=== PATIENT | female | born 1980 | race Caucasian/White ===

== ENCOUNTER → 2021-04-13 17:19 | Outpatient (CLI) | payer BC, SELFPAY ==
--- NOTE | ~2021-04-13 | MR_ITS ---
EXAMINATION: MR ankle RT wo con DATE: 04/13/2021 18:25 INDICATION: Right posterior tibial tendinitis presenting with right ankle pain TECHNIQUE: Magnetic resonance imaging (MRI) of the right ankle was performed without intravenous cont rast. Sequences included sagittal, coronal, and axial proton-density weighted fast spin echo without and with fat saturation. COMPARISON: None. FINDINGS: Medial ankle ligaments: Deep and superficial deltoid ligaments as well as the spring ligament are normal. Lateral ankle ligaments: The anterior and posterior inferior tibiofibular ligaments are normal. The anterior talofibular, calc aneofibular and posterior talofibular ligaments are normal. Tendons: Achilles tendon is normal. Small amount of fluid consistent with minimal tenosynovitis in the tendon sheath surrounding the normal peroneus longus and brevis tendons. The tibialis anterior and extensor hallucis longus and extensor digitorum longus tendons are normal. The flexor digitorum longus and fle xor hallucis longus tendons are normal. Linear increased signal seen in the tibialis tendon beginning at the level of the distal aspect of the medial malleolus on both the axial and coronal images consi stent with longitudinal split tear. Small amount of fluid surrounding the tendon consistent with mild tenosynovitis. Plantar fascia: Plantar aponeurosis is normal. Bones/other: Bone alignment is normal. Normal marrow signal. No fracture, reactive edema or pathologic marrow repl acing process. Joint spaces are normal with physiologic amount of fluid in the joint spaces. IMPRESSION: 1. Mild tibialis posterior tenosynovitis with longitudinal split tear in the distal tendon. 2. Minimal peroneal tenosynovitis with normal-appearing tendons. Reviewed, dictated and finalized at location A. IMPRESSION: 1. Mild tibialis posterior tenosynovitis with longitudinal split tear in the di stal tendon. 2. Minimal peroneal tenosynovitis with normal-appearing tendons.
== END ==
PROVIDERS: Visit Provider Podiatrist Foot & Ankle Surgery
DX: M76.821 Posterior tibial tendinitis, right leg (principal)
CPT/HCPCS: 73721

== ENCOUNTER → 2023-02-13 16:06 | Outpatient (CLI) | payer BC, SELFPAY ==
--- NOTE | ~2023-02-13 | MM_ITS ---
EXAMINATION: MM screening darby BI w jessica HISTORY: Screening mammogram TECHNIQUE: Craniocaudal and mediolateral oblique 3-D tomosynthesis images were obtained and synthetic 2-D images were generated. CAD analysis was submitted and interpreted. COMPARISON: No prior mammogram is available for comparison at this institution. BREAST PARENCHYMAL COMPOSITION:The breasts are extremely dense, which lowers the sensitivity of mammo graphy. FINDINGS: No suspicious mass, calcification, or architectural distortion are identified in either marcelle ast to suggest malignancy. IMPRESSION: No mammographic evidence of malignancy. Recommend routine screening mammography in one year. BI-RADS Category 1: Negative Reviewed, dictated and finalized at location .
== END ==
PROVIDERS: PCP Clinical Nurse Specialist; Visit Provider Clinical Nurse Specialist
DX: Z12.31 Encounter for screening mammogram for malignant neoplasm of breast (principal)
CPT/HCPCS: 77063; 77067

== ENCOUNTER 2023-04-14 19:10 | Emergency (ER) | payer BC, SELFPAY ==
--- NOTE | ~2023-04-14 | US_ITS ---
EXAMINATION: US pelvic complete DATE: 04/15/2023 00:05 INDICATION: Right ovarian cyst Comparison:CT dated 04/14/2023 TECHNIQUE: Multiple transabdominal and endovaginal sonographic images of the pelvis performed. FINDINGS: The uterus is surgically absent. The right ovary measures 5.9 x 3.7 x 3.3 cm. There is normal vascular flow in the right ovary. There is a complex ovarian mass measuring 3.4 x 3.6 x 3.1 cm with peripheral vascularity. The left ovary is surgically absent. There is no free fluid in the pelvis. There are no abnormal masses seen on either side. IMPRESSION: 1. Complex right ovarian mass measuring 3.6 cm. Normal vascular flow in the right ovary. Differential diagnosis includes endometrioma, dermoid as well as ovarian cystadenocarcinoma. Recommend surgical c onsultation. Reviewed, dictated and finalized at location [] IMPRESSION: 1. Complex right ovarian mass measuring 3.6 cm. Normal vascular flow in the rig ht ovary. Differential diagnosis includes endometrioma, dermoid as well as ovar dang cystadenocarcinoma. Recommend surgical consultation.
--- NOTE | ~2023-04-14 | CT_ITS ---
EXAMINATION: CT abdomen pelvis w con INDICATION: Lower abdominal pain TECHNIQUE: Computed tomographic images of the abdomen and pelvis were obtained after the administrati on of 100 cc of Omnipaque 350 intravenous contrast. The dose-length product (DLP) was 666.69 mGy-cm. Automated exposure control and iterative reconstruction technique were employed. COMPARISON: None available FINDINGS: Minimal dependent atelectasis is present in the lung bases. The heart size is normal. The l iver, spleen, pancreas, gallbladder, and adrenal glands are normal. The kidneys are unremarkable. No pathologically enlarged abdominal or pelvic lymph nodes are identified. No free intraperitoneal gas o r evidence of bowel obstruction. The appendix is normal. A large volume of colonic stool is present. No pathologically enlarged abdominal or pelvic lymph nodes are identified. There is a 3.2 cm enhancin g cystic area of the right adnexa. There is mild inflammatory change of the right adnexa. IMPRESSION: 1. Cystic lesion of the right adnexa with right adnexal inflammatory change. Further evaluation with pelvic ultrasound is recommended. Reviewed, dictated and finalized at location A. IMPRESSION: 1. Cystic lesion of the right adnexa with right adnexal inflammatory change. Fu rther evaluation with pelvic ultrasound is recommended.
[2023-04-14 19:22] VITALS: BP 111/68; PULSE 93; RESP 18; TEMP 37; O2SAT 99
[2023-04-14 20:02] LABS: Appearance Urine Clear (Clear); Basophils Absolute Auto 0.1 K/mm3 (0.0-0.1); Basophils Percent Auto 0.5 % (0.2-1.2); Bilirubin Urine Negative (Negative); Blood Urine Negative (Negative); Color Urine Yellow (Yellow); Eosinophils Absolute Auto 0.4 K/mm3 (0-0.3); Eosinophils Percent Auto 3.1 % (0-4.4); Glucose Urine UA Negative (Negative); Hematocrit 41.3 % (37.0-47.0); Hemoglobin 13.3 g/dL (12.0-15.0); Immature Granulocyte Absolute 0.03 K/mm3 (0.00-0.031); Immature Granulocyte Percent A 0.2 % (0-0.5); Ketones Urine Negative (Negative); Leukocyte Esterase Ur Negative LEU/UL (Negative); Lymphocytes Percent Auto 18.1 % (18.3-44.2); Mean Corpuscular HGB Conc 32.2 g/dl (32-36); Mean Corpuscular Hemoglobin 29.6 pg (26-34); Mean Platelet Volume 9.4 fl (7.4-10.4); Monocytes Absolute Auto 1.1 K/mm3 (0.1-0.6); Monocytes Percent Auto 8.9 % (2.6-8.5); Neutrophils Absolute Auto 8.4 K/mm3 (1.3-6.7); Neutrophils Percent Auto 69.2 % (45.5-73.1); Nitrate Urine Negative (Negative); Platelet Count Result 234 k/mm3 (150-375); Protein Urine Negative (Negative); Red Blood Count 4.49 M/mm3 (4.2-5.4); Red Cell Distribution Width 13.1 % (11.5-14.5); Specific Grav Ur 1.024 (1.001-1.035); White Blood Count 12.2 K/mm3 (4.5-10.0)
[2023-04-14 20:04] LABS: Add Urine Microscopic? NO
[2023-04-14 20:11] LABS: Alanine Aminotransferase 52 U/L (6-35); Albumin Level 4.3 g/dL (3.5-5.1); Alkaline Phosphatase 78 U/L (38-126); Anion Gap 5 mmol/L (8-16); Aspartate Amino Transferase 52 U/L (14-36); Bilirubin,Total 0.4 mg/dL (0.2-1.3); Blood Urea Nitrogen 23 mg/dL (7-17); Calcium 8.4 mg/dL (8.4-10.2); Carbon Dioxide 29 mmol/L (22-30); Chloride 103 mmol/L (98-107); Estimated CRCL calculation 76 ml/min; Estimated Glomerular Filt Rate > 60; Glucose 88 mg/dL (65-110); Lipase 82 U/L (23-300); Potassium 4.2 mmol/L (3.4-5.0); Sodium 137 mmol/L (137-145)
[2023-04-14] MEDS: SODIUM CHLORIDE 0.9% IV 1,000 ML 999 ML IV CONT (21:24)
[2023-04-14] MEDS: ACETAMINOPHEN 500 MG TABLET 1000 MG PO (21:26)
--- NOTE | 2023-04-14 21:32 | PC.NURSE ---
Pt states she has a hx of hysterectomy. water quality manager sent down urine sample. No test was obtained.
--- NOTE | 2023-04-14 21:50 | ED.ABDPAIN ---
HPI - Abdominal Pain General Chief Complaint: Abdominal Pain Stated Complaint: lower abd pain Time Seen by Provider: 04/14/23 20:23 Source: patient Mode of arrival: ambulatory Limitations: no limitations History of Present Illness HPI narrative: Patient is 42-year-old female who presents to the ED with report of lower abdominal pain. Patient reports the pain has been present since . She describes a constant aching pain with intermittent sharp pains. Initially began more on the left side, but now includes the right lower side as well. She reports having worsening pain in her abdomen with urinating and having a bowel movement, also worse with movement at times. She states the pain feels somewhat similar to previous endometriosis pain. She thought she may be constipated and took MiraLAX, last had a bowel movement today prior to arrival. She has not tried anything further for the pain. She otherwise denies any nausea, vomiting, diarrhea, rectal bleeding, melena, fevers, dysuria, hematuria. Related Data Home Medications Medication Instructions Recorded Confirmed fexofenadine 180 mg tablet 180 mg PO DAILY 02/01/22 02/11/23 (Allergy Relief (fexofenadine)) fluoxetine 40 mg capsule 40 mg PO DAILY 02/01/22 02/11/23 lithium carbonate 150 mg capsule 150 mg PO QID 02/11/23 02/11/23 Allergies Allergy/AdvReac Type Severity Reaction Status Date / Time coconut Allergy Unknown Unknown Verified 06/28/22 13:32 Review of Systems Review of Systems: CONSTITUTIONAL: Denies fever, chills, or sweats. CARDIOVASCULAR: Denies chest pain. RESPIRATORY: Denies dyspnea. GASTROINTESTINAL: See HPI. GENITOURINARY: See HPI. SKIN: Denies rash or itching. MUSCULOSKELETAL: Denies back pain, joint pain, or myalgia. All systems reviewed & are unremarkable except as noted in HPI and below PMFSH Past Medical History Medical History (Updated 04/15/23 @ 01:39 by Maria Isabel Kapoor PA-C) Allergies Migraine Surgical History Surgical History (Updated 04/15/23 @ 01:04 by Maria Isabel Kapoor PA-C) H/O shoulder surgery right, 09/2020 H/O: hysterectomy (~04/2022) with left oophorectomy Family History Family History Mother Hypertension Hyperlipidemia Depression Heart disease Thyroid disorder Sibling Diabetes mellitus Depression Thyroid disorder Father Malignant neoplasm of prostate Heart disease Grandparent Lung cancer Depression Heart disease Cerebrovascular accident Social History Social History Smoking status: Never smoker Alcohol intake: current Drinks per week: 2 Substance use: never Lack of Transportation: No Lack of Food: Never True Current Housing: I Have Housing Concerned About Future Housing: No Difficulty Paying Gas/Electric Bills: No Difficulty Paying for Meds: No Currently Unemployed: No Education: Master's Degree or Higher Difficulty w/ Childcare or Family Care: No Gender identity (if verbalized by the patient): Female Spiritual care concerns: No Agree to blood products: Yes Exam Narrative: GENERAL: Well appearing, well-nourished, non-toxic, in no acute distress. HEAD: Normocephalic, atraumatic. NECK: Supple. No adenopathy, no masses. RESPIRATORY: Airway patent, respirations nonlabored. Clear to auscultation bilaterally, no rales, rhonchi, wheezing. CARDIOVASCULAR: Regular rate and rhythm without murmurs, rubs, or gallops. Radial pulses 2+ and equal bilaterally. ABDOMINAL: Soft, diffuse tenderness throughout the lower abdomen, worst in LLQ, nondistended, no hepatosplenomegaly. Normoactive BS. MUSCULOSKELETAL: Moves all extremities. Strength/ROM intact without gross deformities. SKIN: Warm, dry, normal color. No rashes. NEURO: A&O X3. Speech clear. Cranial nerves II-XII grossly intact. Steady gait. No ataxic movements. PSYCHIATRIC: Approp
[2023-04-15] MEDS: ONDANSETRON INJ 4 MG/2 ML VIAL IV PUSH (01:51)
[2023-04-15] MEDS: MORPHINE SULFATE (*CRX) 4 MG/ML INJ IV PUSH (01:51)
== END 2023-04-15 02:55 | disposition home or self-care (01) ==
PROVIDERS: Emergency Medicine; Emergency Provider Physician Assistant; PCP Clinical Nurse Specialist
DX: N83.291 Other ovarian cyst, right side (principal); R10.30 Lower abdominal pain, unspecified; R93.5 Abnormal findings on diagnostic imaging of other abdominal regions, including retroperitoneum; Z90.710 Acquired absence of both cervix and uterus; Z90.721 Acquired absence of ovaries, unilateral
CPT/HCPCS: 36415; 74177; 76856; 80053; 81003; 83690; 85025; 96361; 96374; 96375; 99284; A9270; J2270; J2405; J7030; Q9967

== ENCOUNTER 2023-12-13 12:59 | Emergency (ER) | payer BC, SELFPAY ==
--- NOTE | ~2023-12-13 | CT_ITS ---
EXAMINATION: CT brain wo con DATE: 12/13/2023 17:40 INDICATION: Left frontal headache. Dizziness. TECHNIQUE: Computed tomography (CT) of the head was performed without intravenous contrast. The mA wa s adjusted according to patient size. Iterative reconstruction technique was employed. The dose-lengt h product was 529.67 mGy-cm. COMPARISON: None FINDINGS: There is no intracranial hemorrhage, acute infarction, or abnormal intracranial mass lesion . The ventricles are normal in size. There is mild mucosal thickening in the ethmoid sinuses. The mas toid air cells are normal. The orbits are normal. IMPRESSION: 1. Normal brain. Reviewed, dictated and finalized at location E. AGE LINER IMPRESSION: 1. Normal brain.
[2023-12-13 13:14] VITALS: BP 111/61; PULSE 68; RESP 18; TEMP 37.1; O2SAT 100
--- NOTE | 2023-12-13 17:20 | ED.HA ---
HPI - Headache General Chief Complaint: Headache Stated Complaint: migraine Time Seen by Provider: 12/13/23 15:32 Source: patient Limitations: no limitations History of Present Illness HPI Narrative: Patient is a 43-year-old female presents [facility] for a migraine. Patient states for the past had a she did experiencing a migraine, constant, has not noticed anything making it worse, denies it being severe in intensity immediately upon onset, states that she tried to Excedrin of 4 Advil which helped, describes the headache is left-sided, mostly in the frontal region over left side but also goes throughout the entire left side of her head, nonradiating, admits to associated nausea and slight sensitivity to light. Patient denies ever seeing a neurologist. Patient is to history of migraines similar to this. Patient denies any history of imaging of her head. Patient denies any recent injuries or recent illness. Patient denies fever, chest pain, difficulty breathing, urinary discomfort, diarrhea, melena, abdominal pain, rash, numbness, weakness, vision changes, difficulty swallowing, nasal congestion, sore throat, ear pain, hearing changes. Patient denies any family history of aneurysms. The patient denies anyone having same symptoms around her. Patient denies any new or change medications. Related Data Home Medications Medication Instructions Recorded Confirmed fluoxetine 40 mg capsule 40 mg PO DAILY 02/01/22 11/25/23 lithium carbonate 300 mg 300 mg PO QHS 10/02/23 11/25/23 tablet,extended release cetirizine 10 mg capsule (Zyrtec) 10 mg PO DAILY PRN 11/25/23 11/25/23 Allergies Allergy/AdvReac Type Severity Reaction Status Date / Time coconut Allergy Unknown Unknown Verified 11/25/23 07:55 Review of Systems Review of Systems: A 10 system review of systems was completed on the patient and is negative except for what is stated in the HPI. Nursing and ancillary documentation was reviewed. [facility] Past Medical History Medical History Allergies Migraine Surgical History Surgical History H/O shoulder surgery right, 09/2020 H/O: hysterectomy (~04/2022) with left oophorectomy Family History Family History Mother Hypertension Hyperlipidemia Depression Heart disease Thyroid disorder Sibling Diabetes mellitus Depression Thyroid disorder Father Malignant neoplasm of prostate Heart disease Grandparent Lung cancer Depression Heart disease Cerebrovascular accident Social History Social History (Updated 11/25/23 @ 07:57 by Uma Wick) Social History: Caffeine-coffee Smoking status: Never smoker Alcohol intake: current Drinks per week: 2 Substance use: never Substance use type: does not use Lack of Transportation: No Lack of Food: Never True Current Housing: I Have Housing Concerned About Future Housing: No Difficulty Paying Gas/Electric Bills: No Difficulty Paying for Meds: No Currently Unemployed: No Education: Master's Degree or Higher Difficulty w/ Childcare or Family Care: No Gender identity (if verbalized by the patient): Female Spiritual care concerns: No Agree to blood products: Yes Comments At time of signature, I have reviewed and agree with nursing past medical, surgical, social and family history unless otherwise noted. Please see the nursing chart for further information. There is no relevant family history pertinent to the presenting complaint. Exam Narrative: CONST: No acute distress. Well nourished. HENMT: Head is normocephalic and atraumatic. Moist mucous membranes. No posterior oropharynx erythema. No temporal artery tenderness to palpation bilaterally. EYES: No conjunctival icterus, injection, or pallor. PERRL. NECK: No meningeal signs. No palpable cervical lym
[2023-12-13] MEDS: PROCHLORPERAZINE EDISYLATE 10 MG/2 ML VIAL IV PUSH (17:44)
[2023-12-13] MEDS: SODIUM CHLORIDE 0.9% IV 1,000 ML 999 ML IV CONT (17:44)
[2023-12-13] MEDS: KETOROLAC 15 MG/ML VIAL (*BKC) IV PUSH (17:44)
[2023-12-13] MEDS: diphenhydrAMINE HCl INJ 50 MG/ML VIAL 25 MG IV PUSH (17:44)
[2023-12-13 17:54] LABS: Basophils Percent Auto 0.4 % (0.2-1.2); Eosinophils Absolute Auto 0.4 K/mm3 (0-0.3); Eosinophils Percent Auto 3.8 % (0-4.4); Hematocrit 45.1 % (37.0-47.0); Hemoglobin 14.4 g/dL (12.0-15.0); Immature Granulocyte Absolute 0.02 K/mm3 (0.00-0.031); Immature Granulocyte Percent A 0.2 % (0-0.5); Lymphocytes Absolute Auto 2.52 K/mm3 (0.9-3.2); Lymphocytes Percent Auto 26.7 % (18.3-44.2); Mean Corpuscular HGB Conc 31.9 g/dl (32-36); Mean Corpuscular Hemoglobin 29.4 pg (26-34); Mean Platelet Volume 9.8 fl (7.4-10.4); Monocytes Absolute Auto 0.6 K/mm3 (0.1-0.6); Monocytes Percent Auto 6.8 % (2.6-8.5); Neutrophils Absolute Auto 5.9 K/mm3 (1.3-6.7); Neutrophils Percent Auto 62.1 % (45.5-73.1); Platelet Count Result 251 k/mm3 (150-375); Red Cell Distribution Width 12.9 % (11.5-14.5); White Blood Count 9.4 K/mm3 (4.5-10.0)
[2023-12-13 18:03] LABS: Alanine Aminotransferase 20 U/L (6-35); Albumin Level 4.3 g/dL (3.5-5.1); Alkaline Phosphatase 49 U/L (38-126); Anion Gap 5 mmol/L (8-16); Aspartate Amino Transferase 30 U/L (14-36); Bilirubin,Total 0.5 mg/dL (0.2-1.3); Blood Urea Nitrogen 27 mg/dL (7-17); Calcium 9.2 mg/dL (8.4-10.2); Carbon Dioxide 27 mmol/L (22-30); Chloride 106 mmol/L (98-107); Estimated CRCL calculation 93 ml/min; Estimated Glomerular Filt Rate > 60; Glucose 79 mg/dL (65-110); Magnesium 2.1 mg/dL (1.6-2.3); Potassium 4.5 mmol/L (3.4-5.0); Sodium 138 mmol/L (137-145)
[2023-12-13 18:36] LABS: Influenza A QL RT-PCR Negative (Negative); Influenza B QL RT-PCR Negative (Negative); RSV RNA, RT-PCR Negative (Negative); SARS-CoV-2 RNA PCR Negative (Negative)
[2023-12-13 19:48] VITALS: BP 108/70; PULSE 64; RESP 16; O2SAT 99
== END 2023-12-13 19:49 | disposition home or self-care (01) ==
PROVIDERS: Emergency Provider Student in an Organized Health Care Education/Training Program; PCP Clinical Nurse Specialist
DX: G43.909 Migraine, unspecified, not intractable, without status migrainosus (principal); Z20.822 Contact with and (suspected) exposure to COVID-19; Z90.710 Acquired absence of both cervix and uterus; Z90.721 Acquired absence of ovaries, unilateral
CPT/HCPCS: 36415; 70450; 80053; 83735; 85025; 87637; 96361; 96374; 96375; 99284; J0780; J1200; J1885; J7030

== ENCOUNTER 2023-12-31 16:54 | Outpatient (CLI) | payer BC, SELFPAY ==
--- NOTE | ~2023-12-31 | MR_ITS ---
MRI of the brain Clinical History: Headache Technique: Axial and sagittal T1-weighted images were acquired. These were followed by axial T2-weigh yvonne, diffusion weighted, gradient, and FLAIR images. Following intravenous administration of 18 cc Mu ltiHance gadolinium, T1-weighted fat-sat imaging was performed in the axial and coronal planes. Findings: No abnormal signal seen in the brain parenchyma. No acute infarct, intracranial hemorrhage, or mass lesion. Ventricles and subarachnoid spaces are unremarkable. Orbits are unremarkable. Paranasal sinuses and m astoid air cells are clear. Major intracranial flow voids are intact. Sagittal midline structures are intact. No abnormal postcontrast enhancement identified. IMPRESSION: Unremarkable exam. Reviewed, dictated and finalized at location M. ATION CONTROL SPECIALIST IMPRESSION: Unremarkable exam.
== END 2023-12-31 16:55 | disposition home or self-care (01) ==
PROVIDERS: PCP Clinical Nurse Specialist; Visit Provider Clinical Nurse Specialist
DX: R51.9 Headache, unspecified (principal)
CPT/HCPCS: 70553; A9577

== ENCOUNTER 2024-06-15 14:46 | Outpatient (CLI) | payer BC, SELFPAY ==
--- NOTE | ~2024-06-15 | CT_ITS ---
EXAMINATION: CTA brain carotid DATE: 06/15/2024 15:19 INDICATION: Headache. TECHNIQUE: Computed tomographic angiography (CTA) of the head was performed without and with 100 mL O mnipaque-350 intravenous contrast. CTA of the neck was performed with intravenous contrast. Automated exposure control and iterative reconstruction technique were employed. The dose-length product was 1 497.87 mGy-cm. Maximum intensity projection and volume rendered 3D-reconstructions were created by shantel morrison technologist on a separate workstation. COMPARISON: Head CT 12/13/2023 FINDINGS: HEAD CTA: There is no intracranial hemorrhage, acute infarction, or abnormal intracranial mass lesion . The ventricles are normal in size. The paranasal sinuses are clear. The mastoid air cells are chucho l. The orbits are normal. The vertebral arteries are codominant. There is no significant stenosis of basilar artery or the posterior cerebral arteries. There is no significant stenosis of the intracrani al internal carotid arteries or anterior or middle cerebral arteries. Anterior communicating artery i s normal. The posterior corticated arteries are normal. There is no aneurysm. NECK CTA: There are no pathologically enlarged lymph nodes. There is no significant stenosis of the v ertebral arteries. There is no significant plaque in the proximal internal carotid arteries. There is 0% stenosis of the proximal right internal carotid artery relative to normal distal artery lumen ricardo meter (NASCET criteria). There is 0% stenosis of the proximal left internal carotid artery relative t o normal distal artery lumen diameter. There is moderate cervical spondylosis. IMPRESSION: 1. Normal brain. No aneurysm or significant intracranial arterial stenosis. 2. 0% stenosis of the proximal internal carotid arteries relative to normal distal artery lumen diame ters (NASCET criteria). Reviewed, dictated and finalized at location A. IMPRESSION: 1. Normal brain. No aneurysm or significant intracranial arterial stenosis. 2. 0% stenosis of the proximal internal carotid arteries relative to normal dis kasi artery lumen diameters (NASCET criteria).
== END 2024-06-15 14:47 | disposition home or self-care (01) ==
LOC: ANHIMG 14:46
PROVIDERS: PCP Clinical Nurse Specialist; Visit Provider Psychiatry & Neurology Neurology
DX: R51.9 Headache, unspecified (principal)
CPT/HCPCS: 70496; 70498; Q9967

== ENCOUNTER 2025-04-22 15:38 | Outpatient (CLI) | payer BC, SELFPAY ==
--- NOTE | ~2025-04-22 | MM_ITS ---
EXAMINATION: MM screening darby BI w jessica HISTORY: Screening TECHNIQUE: Craniocaudal and mediolateral oblique 3-D tomosynthesis images were obtained and synthetic 2-D images were generated. CAD analysis was submitted and interpreted. COMPARISON: 02/13/2023 BREAST PARENCHYMAL COMPOSITION: Dense: The breasts are extremely dense, which lowers the sensitivity of mammography. FINDINGS: There is no evidence of suspicious mass, calcification, or architectural distortion to sugg est malignancy in either breast. There has been no suspicious interval change. IMPRESSION: 1. No mammographic evidence of malignancy. 2. Recommend routine screening mammography in one year. BI-RADS Category 1: Negative Reviewed, dictated and finalized at location A.
== END 2025-04-22 15:39 | disposition home or self-care (01) ==
LOC: MICIMG 15:39
PROVIDERS: PCP Clinical Nurse Specialist; Visit Provider Clinical Nurse Specialist
DX: Z12.31 Encounter for screening mammogram for malignant neoplasm of breast (principal)
CPT/HCPCS: 77063; 77067

== ENCOUNTER 2025-10-07 02:00 | Day surgery (SDC) | payer BC, SELFPAY ==
[2025-09-20 09:56] VITALS: BMI 27.4
--- OUTSIDE RECORDS SUMMARY | 2025-10-07 02:05 | XMS_ITS | Clinical Summary ---
Author Organization [facility] Address [address] [place] [address] Care Team Providers Care Toe Laster Name Role Phone Nadine Yang ESEQUIEL-RACING BOARD MARKER Primary Care Provider [phone] Source Comments [facility],non-owned Affiliates and Associated Physician Practices is amultiple site organization consisting of ambulatory clinics and hospital sitesin [place], [place], [place] and [place]. This disclosure is being madepursuant to the Care Everywhere program and may not contain all information available regarding this patient. Last updated 18.[facility] Allergies Active Allergy Reactions Criticality Noted Date Comments Coconut (Cocos Nucifera) Allergy Skin Test Urticaria Medi um 07/04/2023 Medications * This document contains information received from the source organization and may not represent a complete record from that organization. * Be aware that medications may not be up to date on this document. Alwaysverify current medications with the patient. fexofenadine (SHANNON) 180 MG tablet Take 1 (one) tablet by mouth once daily Active ibuprofen (MOTRIN) 800 MG tablet Take 1 (one) tablet by mouth 9 Active albuterol HFA (PROVENTIL;OLAF TOLIN;PROAIR) 108 (90 Base) MCG/ACT inhaler 1 Active norethindrone (Aygestin) 5 MG tablet Take 1 (one) tablet by mouth once daily 30 tablet 2 3 Active Qulipta 60 MG TABS Take 1 (one) tablet by mouth once daily 4 Active scopolamine (Transderm-Sco p) 1 MG patch APPLY 1 PATCH TRANSDERMALLY EVERY 3 DAYS NEEDED FOR MOTION SICKNESS 4 Active Ubrelvy 100 MG tablet Take 1 (one) tablet by mouth once as needed for Migraine (100 mg orally once as needed for migraine may repeat once after 2 hours after 1st dose if needed) 4 Active levothyroxine (Synthroid) 50 MCG tablet Take 1 (one) tablet by mouth daily before breakfast Active gabapentin (Neurontin) 100 MG capsuleIndicat ions:Insomnia, Vasomotor Symptoms of Menopause Take 4 (four) capsules by mouth at bedtime Reasons: Night Sweats and Hot Flashes Associated with Menopause, Trouble Sleeping 120 capsule 2 5 12/06/19 26 Active lithium CR (Lithobid) 300 MG tablet Take 1 (one) tablet by mouth at bedtime 90 tablet 1 5 03/06/20 26 Active FLUoxetine (PROzac) 40 MG capsule Take 1 (one) capsule by mouth every morning 90 capsule 1 5 03/06/20 26 Active Active Problems Problem Noted Date Diagnosed Date Other dietary vitamin B12 deficiency anemia 05/0507/04/2023 Iron deficiency anemia 04/10/2022 3 Polyarthralgia 05/19/2020 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 Date Type Department Care Team Description 09/07/2025 Travel from Last 3 Months Immunizations Immunization Administration Dates Next Due INFLUENZA VACCINE, QUADR. (F LUZONE; FLULAVAL; FLUARIX; AFLURIA QUADRIVALENT; 6MO+), 0.5 ML (IIV4) 08/04/2020 TDAP (7yrs+) 02/25/2022 Family History Medical History Relation Name Comments Alzheimer's Disease Father Sleep Disorder - Sleep apnea Father Relation Name Status Comments Father Social History Tobacco Use Types Packs/Day Years Used Date Smoking Tobacco: Never Smokeless Tobacco: Never Tobacco Cessation:Counseling Given: Not Answered Alcohol Use Standard Drinks/Week Comments Yes 2 (1 standard drink = 0.6 oz pur e alcohol) 2 beers/week PHQ-2 Answer Date Recorded Patient Health Questionnaire-2 Score 2 09/07/2025 Comments No Sex and Gender Information Value Date Recorded Sex Assigned at Not on file Legal Sex Female 5:37 PM PIER HAND Gender Identity Not on file Sexual Orientation Not on file 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 Not on file Not on file Not on file Last Filed Vital Signs Vital Sign Reading Time Taken Comments Blood Pressure 142/70 09/07/2025 8:05 AM PIER HAND Pulse 82 09/07/2025 8:05 AM PIER HAND Temperature 36.6 C (97.8 F) 09/07/2025 8:05 AM PIER HAND Respiratory Rate 20 10/23/2022 8:11 AM PIER HAND Oxygen Saturation 97% 09/07/2025 8:05 AM PIER HAND Inhaled Oxygen Concentration - - Weight 83.9 kg (185 lb) 09/07/2025 8:05 AM PIER HAND Height 172.7 cm (5' 8) 06/04/2025 3:24 PM CDT Body Mass Index 28.13 06/04/2025 3:24 PM CDT Plan of Treatment Health Maintenance Due Date Last Done Comments LIPID TESTING 1982 MAMMOGRAM 1982 HIV SCREENING 1997 HEPATITIS B VACCINE (1 of 3 - 19+ 3-dose series) 2001 HPV VACCINE (1 - 3-dose SCDM series) 2009 COVID-19 VACCINE ( season) 2025 09/14/2022, 10/20/2021, 01/23/2021, Additional history exists INFLUENZA VACCINE (#1) 2025 3, 09/14/2022, 08/04/2020 SCREENING FOR DIABETES 06/11/2028 5, 02/28/2023, 01/28/2023, Additional history exists DTAP/TDAP/TD VACCINES (2 - Td or Tdap) 02/26/2032 02/25/2022 ZOSTER VACCINE (1 of 2) 2032 HEPATITIS C SCREENING Completed 07/19/2023 DEPRESSION SCREENING Completed 12/08/2024, 01/23/2024, 07/31/2023, Additional history exists HIB VACCINE Aged Out No longer eligi ble based on patient's age to complete this topic MENINGOCOCCAL (Group B) VACCINE SHARED DECISION-MAKING Aged Out No longer eligible based on patient's age to complete this topic MENINGOCOCCAL GROUPS A/C/Y/W VACCINE Aged Out No longer eligible based on patient's age to complete this topic PNEUMOCOCCAL VACCINE Aged Out No long er eligible based on patient's age to complete this topic Procedures Procedure Name Priority Date/Time Associated Diagnosis Comments BASIC METABOLIC PANEL (CALCIUM TOTAL) Routine 06/11/2025 7:32 AM CDT Bipolar 2 disorder, major depressive episode (HCC) HEPATITIS C AB W/RFLX TO HCV RNA QN PCR Routine 07/19/2023 8:07 AM CDT Need for hepatitis C screening test from Last 3 Months or Most Recently Relevant to Health Maintenance Results * (ABNORMAL) BASIC METABOLIC PANEL (CALCIUM TOTAL) (06/11/2025 7:32 AM CDT) Glucose 111(H) 65 - 99 mg/dL [facility] Comment: Fasting reference interval For someone without known diabetes, a glucose value between 100 and 125 mg/dL is consistent with prediabetes and should be confirmed with a follow-up test. BUN 15 7 - 25 mg/dL [facility] Creatinine 0.86 0.50 - 0.99 mg/dL [facility] eGFR by Cystatin C 86 > OR = 60 mL/min/1. 73m2 [facility] BUN/Creatinine Ratio SEE NOTE: 6 - 22 (calc) [facility] Comment: Not Reported: BUN and Creatinine are within reference range. Sodium 138 135 - 146 mmol/L [facility] Potassium 4.2 3.5 - 5.3 mmol/L [facility] Chloride 106 98 - 110 mmol/L [facility] CO2 25 20 - 32 mmol/L [facility] Calcium 8.8 8.6 - 10.2 mg/dL [facility] Comment: REPORT COMMENT: INSURANCE ON PHONE FASTING:YES Test Performed at: [id number] [address] DEVON GARAY MD Blood BLOOD SPECIMEN / Unknown 06/11/2025 7:32 AM CDT 06/11/2025 7:33 AM CDT us Gerard Guevara MD LAB - CHEMISTRY ORDERA BLES Final Result Performing Organization Address [facility] Co de Phone Number [facility] [address] [place] [address] * HEPATITIS C AB W/RFLX TO HCV RNA QN PCR (07/19/2023 8:07 AM CDT) Hepatitis C Antibody NON-REACTI VE NON-REACT [facility] Comment: HCV antibody was non-reactive. There is no laboratory evidence of HCV infection. In most cases, no further action is required. However, if recent HCV exposure is suspected, a test for HCV RNA (test code 52003) is suggested. For additional information please refer to http://education.Geofusion/faq/PAL06g5 (This link is being provided for informational/ educational purposes only.) Test Performed at: [facility] [address] [place] [address] DEVON GARAY MD Blood BLOOD SPECIMEN / Unknown 07/19/2023 8:07 AM CDT 07/19/2023 8:08 AM CDT us Sanjay Paez MD LAB - CHEMISTRY ORDERABLES Final Result Performing Organization Address [facility] de Phone Number [facility] [address] [place] [address] from Last 3 Months or Most Recently Relevant to Health Maintenance Insurance [employer] Care Teams Toe Laster Relationship Specialty Start Date End Date Nadine Yang APRN-HOOD [address] [place] [address] PCP - General 05/17/20
--- OUTSIDE RECORDS SUMMARY | 2025-10-07 02:05 | XMS_ITS | Clinical Summary ---
Author Organization [facility] Brea Alvamelisa Address [address] [place] [address] Care Team Providers Care Grab Jack Worker Name Role Phone Unavailable Primary Care Provider Unavailabl e Allergies No known active allergies Medications FeroSuL 325 mg (65 mg iron) tablet 02/08/2022 Active FLUoxetine (PROzac) 40 mg capsule 04/09/2022 Active fexofenadine (SHANNON) 180 mg tablet Take 180 mg by mouth daily. Active magnesium oxide 250 mg magnesium Tablet Take by mouth. Active cholecalciferol (VITAMIN D3) 10 mcg/mL (400 unit/mL) Drops Take by mouth daily in the morning. Active Qulipta 60 mg Tablet Take 180 mg by mouth. 03/07/2024 Active gabapentin (NEURONTIN) 100 mg capsule Take 200 mg by mouth daily at bedtime. 04/04/2024 Active lithium carbonate (LITHOBID) 300 mg Extended Release tablet Take 300 mg by mouth daily at bedtime. Active ubrogepant (UBRELVY) 100 mg tablet Take 100 mg by mouth. 02/04/2024 Active methylPREDNISolo ne (Medrol, Logan,) 4 mg Tablets, Dose Pack 6 pills in am with food Day 1, then 5 pills in am with food Day 2, then 4 pills in am with food Day 3, then 3 pills in am with food Day 4, then 2 pills in am with food Day 5, then 1 pill in am with food Day 6, then stop. 21 Tablet 08/09/2025 Active atogepant (Qulipta) 60 mg Tablet Take 1 Tablet (60 mg) by mouth daily. 90 Tablet 3 08/09/2025 Active Active Problems Problem Noted Date Diagnosed Date Other dietary vitamin B12 deficiency anemia 05/05 Iron deficiency anemia 04/10/2022 Encounters Date Type Department Care Team Description 10/05/2025 External Device Data ST[facility] ABSTRACTION Provider, Abstract 09/08/2025 External Device Data [facility] ABSTRACTION Provider, Abstract 09/01/2025 External Device Data ST[facility] ABSTRACTION Provider, Abstract 08/24/2025 External Device Data STL ABSTRACTION Provider, Abstract 08/10/2025 External Device Data STL ABSTRACTION Provider, Abstract 08/10/2025 External Device Data STL ABSTRACTION Provider, Abstract 08/09/2025 2:20 PM CDT Office Visit [facility] Neurology [facility] [address] [place] [phone] Bashir Alonso (College Specialist), PROFESSOR OF ENGINEERING Chronic migraine w/o aura, not intractable, w stat migr (Primary Dx); Myalgia 07/22/2025 Abstract [facility] Neurology [facility] [address] [place] [address] Provider, Abstract from Last 3 Months Family History Relation Name Status Comments Father Alive Mother Alive Sister Alive Social History Tobacco Use Types Packs/Day Years Used Date Smoking Tobacco: Never Smokeless Tobacco: Never Tobacco Cessation:Counseling Given: Not Answered Alcohol Use Standard Drinks/Week Comments Yes 0 (1 standard drink = 0.6 oz pur e alcohol) occasional Comments Unknown Sex and Gender Information Value Date Recorded Sex Assigned at Not on file Legal Sex Female 3:43 PM CDT Gender Identity Not on file Sexual Orientation Not on file Last Filed Vital Signs Vital Sign Reading Time Taken Comments Blood Pressure 129/61 08/09/2025 2:02 PM CDT Pulse 68 08/09/2025 2:02 PM CDT Temperature 36.6 C (97.8 F) 05/14/2023 9:24 AM CDT Respiratory Rate 10 05/14/2023 9:24 AM CDT Oxygen Saturation 96% 08/09/2025 2:02 PM CDT Inhaled Oxygen Concentration - - Weight 84.1 kg (185 lb 6.4 oz) 08/09/2025 2:02 P M CDT Height 172.7 cm (5' 8) 08/09/2025 2:02 PM CDT Body Mass Index 28.19 08/09/2025 2:02 PM CDT Plan of Treatment Upcoming Encounters Date Type Department Care Team (Late st Contact Info) Description 02/07/2026 1:00 PM CDT Office Visit [facility] Neurology [facility] [address] [place] [address] AlonsoBashir (College Specialist), PROFESSOR OF ENGINEERING [address] [place] [address] Health Maintenance Due Date Last Done Comments Pre-Diabetes and Diabetes Screening 1982 HEPATITIS B VACCINES (1 of 3 - 19+ 3-dose series) 2001 HPV VACCINES (1 - 3-dose SCDM series) 2009 BREAST CANCER SCREENING 2022 INFLUENZA VACCINE (#1) 2025 08/04/2020 COVID-19 Vaccine ( - season) 2025, 12/21/2020 DTAP/TDAP/TD VACCINES (2 - Td or Tdap) 02/26/2032 Insurance [facility] PREFERRED [facility] OUT OF [facility]
--- OUTSIDE RECORDS SUMMARY | 2025-10-07 02:05 | XMS_ITS | Clinical Summary ---
Author Organization [facility] [employer] Address [address] [place] [address] Care Team Providers Care Software Test And Validation Engineer Name Role Phone Sarah Beth Rodriguez MD Primary Care Provider Allergies Active Allergy Reactions Criticality Noted Date Comments Coconut Hives Medium 02/04/2024 Coconut Milk Hives Medium Medications fexofenadine (SHANNON) 180 mg tablet Take 1 tablet (180 mg total) by mouth hedis registered nurse rn before breakfast Active albuterol HFA (PROVENTIL HFA,VENTOLIN HFA,PROAIR HFA) 90 mcg/actuation inhaler Inhale 2 puffs every 8 (eight) hours as needed 1 Active lithium ER (LITHOBID) 300 mg CR tablet Take 1 tablet (300 mg total) by mouth nightly 30 tablet 5 3 Active cholecalciferol , vitamin D3, (VITAMIN D3 ORAL) Take 1 tablet by mouth every morning Active ubrogepant (Ubrelvy) 100 mg tablet Take 1 tablet (100 mg total) by mouth daily as needed 4 Active tacrolimus (PROTOPIC) 0.1 % ointment Apply 1 Application topically 2 (two) times a day as needed 5 Active BD Insulin Syringe Ultra-Fine 0.3 mL 31 gauge x 03/19 syringe 2 INJECTIONS TWICE WEEKLY 5 Active minocycline (DYNACIN) 100 mg tablet Take 1 tablet (100 mg total) by mouth 2 (two) times a day as needed 5 Active ketoconazole (NIZORAL) 2 % cream Apply 1 Application topically 2 (two) times a day as needed 5 Active gabapentin (NEURONTIN) 100 mg capsule Take 2 capsules (200 mg total) by mouth nightly 4 Active Qulipta 60 mg tablet Take 180 mg by mouth every morning Active FLUoxetine (PROzac) 40 mg capsule Take 1 capsule (40 mg total) by mouth every morning Active Active Problems Problem Noted Date Diagnosed Date Abnormal thyroid function test 08/27/2025 Chronic sinusitis 08/27/2025 Anemia 08/27/2025 Depression 08/27/2025 Fatigue 08/27/2025 H/O: hysterectomy 08/27/2025 Hypomagnesemia 08/27/2025 Nasal folliculitis 08/27/2025 Uterine fibroid 08/27/2025 Vitamin B12 deficiency 08/27/2025 Vitamin D deficiency 08/27/2025 Facial pain 08/27/2025 Headache 08/27/2025 Joint pain 08/27/2025 Endometriosis 05/17/2025 Pelvic floor dysfunction in female 10/11/2022 Other dietary vitamin B12 deficiency anemia 05/05 Iron deficiency anemia 04/10/2022 Coronavirus infection 09/06/2020 Overview (05/04/2022): 1. Do you have any questions about Covid-19? (with the goal to find out how informed a member is about Covid-19)? Denies. 2. How do you protect yourself and/or your family unit since there is more public activity now? Has been monitoring local news and updates. 3. Do you know the symptoms of Covid-19 and what you would do if you or someone in your family started having those symptoms (with the goal of assessing action plan)? Notify they doctor. o If member is SARS-CoV-2 positive, ensure they understand the action plan from their provider. NA 4. Do you foresee any problems with food/cooking, cleaning, monitoring symptoms of infection, and managing family/other contacts? Denies. 5. Have you recently experienced or do your anticipate any impact/delay in your appointments or treatments because of Covid-19? Denies 6. Have you felt a change in your mood or anxiety levels related to the pandemic? Has underlying depression but she denies concerns. 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 Recurrent major depressive disorder, in full rem ission 05/22/2016 Cephalalgia 07/27/2015 Bipolar II disorder 10/09/2011 Bipolar affective disorder 11/04/2004 Overview (02/07/2017): Bipolar disorder Cleft palate 11/04/1983 Overview (02/08/2017): Cleft palate Resolved Problems Problem Noted Date Diagnosed Date Resolved Date Post-operative state 05/04/2022 022 Pelvic and perineal pain 01/08/202212/2021 Abnormal uterine bleeding (AUB) 12/30/2018 06/05/2022 Infertility, female 08/26/2018 06/05/20 Encounter for contraceptive management 07/27/2015 06/05/2022 Vaginal bleeding between periods 07/27/2015 06/05/2022 Encounters Date Type Department Care Team Description 08/27/2025 2:00 PM CDT Office Visit [facility] Medicine Obstetrics and Gynecology [address] [place] [address] 7th Floor [address] [place] [phone] Charley Robin MD Well woman exam (Primary Dx) 07/27/2025 1:00 PM CDT Office Visit [facility] Medicine Minimally Invasive Surgery [address] [place] [address] 7th Floor [address] [place] [phone] Haley Bowden MD Postop check (Primary Dx) 07/13/2025 Results Follow-Up [facility] [address] [place] [address] Floor [address] [place] [phone] Haley Bowden MD Surgical pathology 07/08/2025 1:06 PM CDT Anesthesia Event [facility] Operating Room [address] [place] [address] FlakoEric dougherty MD Devuono, Lauren Falvey, NP 07/08/2025 11:30 AM CDT - 07/08/2025 2:30 PM CDT Surgery [facility] Operating Room [facility] [phone] Haley Bowden MD Laparoscopic Excision of Endometriosis, Left Ureterolysis, and Cystoscopy 07/08/2025 8:53 AM CDT - 07/08/2025 4:57 PM CDT Hospital Encounter [facility] Operating Room [facility] [place] [address] Haley Bowden MD Endometriosis Discharge Disposition: Discharge to home or self care from Last 3 Months Immunizations Immunization Administration Dates Next Due Influenza, Quadrivalent, Spl it, Preservative Free, Intramuscular 08/22/2023,09/14/2022,08/04/2020 Moderna SARS-CoV-2 Monovalen t Vaccination (12+ YRS) 01/23/2021,12/21/2020 Tdap 02/25/2022 Surgical History Surgery Date Site/Laterality Comments WISDOM TOOTH EXTRACTION TYMPANOSTOMY TUBE PLACEMENT several CLEFT PALATE REPAIR UVULECTOMY HYSTERECTOMY CYSTOSCOPY SHOULDER ARTHROSCOPY ELECTROCONVULSIVE THERAPY 11/04/2010 - 11/03/2011 MDD PELVIC LAPAROSCOPY Laparoscopic Excision of Endometriosis, Left Ureterolysis, and Cystoscopy Medical History Medical History Date Comments Anxiety and depression Arthritis Migraine SVT (supraventricular tachycardia) 2016 once without recurrence Endometriosis Bipolar 2 disorder (HCC) Hypothyroidism IRON (iron deficiency anemia) Exercise-induced asthma History of nephrolithiasis RA (rheumatoid arthritis) no med s Family History Relation Name Status Comments Father Mother Sister 1 Sister 2 Social History Tobacco Use Types Packs/Day Years Used Date Smoking Tobacco: Never Smokeless Tobacco: Never Alcohol Use Standard Drinks/Week Comments Yes 2 (1 standard drink = 0.6 oz pur e alcohol) Humiliation, Afraid, Rape, and Kick questionnair e Answer Date Recorded Fear of Current or Ex-Partner No Emotionally Abused No 04/10/2019 Physically Abused No 04/10/2019 Sexually Abused No 04/10/2019 Social Connection and Isolation Panel Answer Date Recorded Frequency of Communication with Friends and Fami ly Not on file 04/10/2019 Frequency of Social Gatherings with Friends and Family Not on file 04/10/2019 Attends Catholic Services Not on file 04/10 Active Member of Clubs or Organizations Not on f ile 04/10/2019 Attends Club or Organization Meetings Not on alexander e 04/10/2019 Marital Status 04/10/2019 Exercise Vital Sign Answer Date Recorde d Days of Exercise per Week 4 days 2018 Minutes of Exercise per Session 40 min 04/10/2019 AUDIT-C Answer Date Recorded Q1: How often do you have a drink containing alc ohol? 2-3 times a week 08/27/2025 Q2: How many drinks containi ng alcohol do you have on a typical day when you are drinking? 1 or 2 08/27/2025 Q3: How often do you have si x or more drinks on one occasion? Never 08/27/2025 Personal Safety Answer Date Recorded Have you ever been in or are you currently in a harmful physical or emotional relationship or is someone making you feel afraid or unsafe? 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 Gender Identity Not on file Sexual Orientation Not on file Obstetrics History Para Term AB IAB SAB Ectopic Multiple Livin g Live Births 0 0 0 0 0 0 0 0 0 0 0 Last Filed Vital Signs Vital Sign Reading Time Taken Comments Blood Pressure 105/69 08/27/2025 1:58 PM CDT Pulse 70 07/08/2025 4:25 PM CDT Temperature 36.6 C (97.8 F) 07/08/2025 3:26 PM CDT Respiratory Rate 07/08/2025 4:25 PM CDT Oxygen Saturation 97% 07/08/2025 4:25 PM CDT Inhaled Oxygen Concentration - - Weight 83 kg (183 lb) 08/27/2025 1:58 PM CDT Height 172.7 cm (5' 8) 08/27/2025 1:58 PM CDT Body Mass Index 27.83 08/27/2025 1:58 PM CDT Plan of Treatment Health Maintenance Due Date Last Done Comments Breast Cancer Screening-Mammogram 1980 Depression Screening 1980 Hepatitis C Screening 1980 Varicella Vaccines (1 of 2 - 13+ 2-dose series) 1995 Hepatitis B Screening 2000 HPV Vaccines (1 - 3-dose SCDM series) 2009 Covid-19 Vaccine ( - season) 2025 10/20/2021, 01/23/2021, 12/21/2020 Influenza Vaccine (#1) 2025 3, 09/14/2022, 08/04/2020 Regular Well Visit/Exam 18-64 08/27/2026 08/27/2025, 04/10/2019 DTaP/Tdap/Td Vaccine (2 - Td or Tdap) 02/26/2032 02/25/2022 Cervical Cancer Screening Discontinued 2018, 12/30/2018 Pneumococcal vaccine <65 Aged Out No longer eligible based on patient's age to complete this topic Procedures Procedure Name Priority Date/Time Associated Diagnosis Comments SURGICAL PATHOLOGY Routine 07/08/2025 2: 26 PM CDT Endometriosis WI AN PROCEDURE PLACEHOLDER Routine 07/08/2025 1:23 PM CDT WI AN ELECTIVE ENDOTRACHEAL AIRWAY Routine 07/08/2025 1:23 PM CDT LAPAROSCOPY OPERATIVE 07/08/2025 1:08 PM CDT Endometriosis B CHECK SAMPLE STAT 07/08/2025 9:36 AM CDT THINPREP DIRECTOR ENVIRONMENTAL PAP (IMAGE GUIDED) LIQUID-BASED PREP Routine 04/10/2019 8:46 AM CDT from Last 3 Months or Most Recently Relevant to Health Maintenance Results * Surgical pathology (07/08/2025 2:26 PM CDT) Other (Other) 07/08/2025 2:2 6 PM CDT Comment:Placed in Formalin a t end of procedure in pathology room Other (Other) 07/08/2025 2:5 3 PM CDT Comment:Placed in Formalin a t end of procedure in pathology room Narrative PATHOLOGY [facility] - 07/13/2025 10:16 AM CDT [place] [id number] [place], [place] [address] Tele: Ju Alas MD - Assistant Executive Housekeeper Note to Patients: This report may contain a detailed description of human tissue sent by a health care provider to the laboratory for pathologic evaluation. The content of this report is essential for diagnosis and may provide important critical findings. This information may be unfamiliar to patients to review without a medical professional present. It is advised that the patient review this report in the presence of a health care provider who can answer questions and explain the details. SURGICAL PATHOLOGY REPORT Patient Name: BENJAMIN COLLINS Address: [address] [place] [address], [place] [address] Gender: F : 1980 (Age: 44) Service: Surgery Location: [facility] [place] Hospital #: [id number] Patient Type: [facility] [place] [facility] Taken: 07/08/2025 Received 07/08/2025 Reported: 07/13/2025 Physician(s): MD Sarah Beth Ruff M.D. DIAGNOSIS: A. Soft tissue, left infundibulopelvic ligament and left pelvic sidewall peritoneum, excision: - Benign fibroadipose tissue, negative for endometriosis B. Vaginal nodule, excision: - Endometriosis - Negative for atypia or malignancy /07/13/2025 10:16 Examining Pathologist: Shayna Bejarano M.D. Report Reviewed and Electronically Signed By Shayna Bejarano M.D. SPECIMEN TYPE: A: LEFT INFUNDBULOPELVIC LIGAMENT AND LEFT PELVIC SIDEWALL PERITONEUM B: VAGINAL NODULE CLINICAL IMPRESSION AND HISTORY: The patient is a 44-year-old woman who presented with left lower quadrant pain concerning for recurrence of endometriosis. Operative procedure: Laparoscopic resection of endometriosis, left ureterolysis and cystoscopy. GROSS DESCRIPTION: The tissue is received in two containers of formalin all labeled with the patient's name BENJAMIN Andres. The first container is additionally labeled left infundibulopelvic ligament and left pelvic sidewall peritoneum and contains 1.5 x 1.1 x 0.3 cm purple red-brown irregular tissue fragment. Due to the color and size of the specimen, eosin is used. The specimen is filtered and submitted entirely in cassette A1. B. The second container is additionally labeled vaginal nodule and contains to firm pink wise irregular tissue fragments measuring 1.5 x 1 x 0.6 cm in aggregate. Specimen is sectioned. Due to the color and size of the specimen, eosin is used. The specimen is filtered and submitted entirely in cassette B1. RAMA VELASCO MICROSCOPIC DESCRIPTION: A. The sections of left infundibulopelvic ligament and pelvic sidewall peritoneum show benign fibroadipose tissue with no evidence of endometriosis, atypia or malignancy. Deeper sections were performed and evaluated. B. The sections of vaginal nodule shows endometrial glands and stroma within fibromuscular tissue, consistent with endometriosis. There is no evidence of atypia or malignancy. Clerical Data Follows A; [id number] B; [id number], [id number] <CR>, [id number] REPORT IMAGES AND/OR SCANNED DOCUMENTS ONLY VIEWABLE IN PDF FORMAT The immunohistochemical test(s) cited in this report, if any, was developed and its performance characteristics determined by [facility] Pathology Department. It has not been cleared or approved by the U.S. Food and Drug Administration. The FDA has determined that such clearance or approval is not necessary. This test is used for clinical purposes. It should not be regarded as investigational or for research. [facility] Laboratory is certified under the Clinical Laboratory Improvement Amendments of 1988 (CLIA) as qualified to perform high complexity testing. Immunostains were performed on formalin-fixed paraffin embedded tissue using a polymer diaminobenzidine chromogen detection system. Antibodies used may include clone SP1 (rabbit monoclonal, estrogen receptor), clone 1E2 (rabbit monoclonal progesterone receptor), Ki-67 (rabbit monoclonal, 30-9), CD117 (rabbit polyclonal, c-kit), and anti-Her-2/carlitos (4B5) (rabbit monoclonal primary antibody). In the event that immunohistochemistry or special stains have been performed, attending physician has confirmed appropriateness of controls. Frozen section, operating room consultation, gross examination and dissection, and case sign out may have been performed in part or completely in the following laboratories: [facility], [facility], [place] [address] [address]. Haley Bowden MD LAB PATHOLOGY ORDERABL ES Final Result Performing Organization Address City/[facility]/ZIP Co de Phone Number PATHOLOGY [facility] Laboratory Receiving [address] [place] [address] * WI AN ELECTIVE ENDOTRACHEAL AIRWAY, WI AN PROCEDURE PLACEHOLDER (07/08/2025 1:23 PM CDT) Narrative Charley Tee CRNA - 07/08/2025 1:23 PM CDT Charley Tee CRNA 07/08/2025 1:24 PM Airway Patient location: OR Urgency: elective Date/time: 07/08/2025 1:16 PM Indications for airway management: anesthesia Difficult airway: no Staff: Placed by: DEMARIO: Charley Tee CRNA Airway prep: Preoxygenated: yes Patient position: sniffing Mask difficulty assessment: 2 - vent by mask + OA or adjuvant Sedation level during airway: GA Final airway details: Final airway type: endotracheal airway Tube type: ETT ETT size: 7.0 mm Cuffed: yes Technique used for successful ETT placement: video laryngoscopy Devices/Methods used in placement: stylet Insertion site: oral Video blade type: Cruz Blade size: 3 Cormack-Lehane (video): grade I - full view of glottis Cuff volume: 7 mL Cuff inflated with: air ETT to teeth: 20 cm Placement verified by: auscultation and CO2 detection Airway secured with: silk tape Number of attempts: 1 Eric Arriola MD ANESTHESIA ORDERABLES Final Res ult * Check Sample (07/08/2025 9:36 AM CDT) ABO Rh O Positive MBC [facility] OTHER 07/08/2025 9:36 AM CDT 07/08/2025 9:47 AM CDT Radha Ledezma NP LAB BLOOD ORDERABLES Fin al Result Performing Organization Address City/[facility]/ZIP Co de Phone Number [facility] [address] Department [place] [address] MBC * ThinPrep Gynecologic Pap Test (Image-guided), Liquid-based Preparation (04/10/2019 8:46 AM CDT) CLINICAL INFORMATION: Information not provided [facility] - LMP UNKNOWN [facility] - Previous Pap INFORMATION NOT PROVIDED [facility] - Prev. Bx INFORMATION NOT PROVIDED [facility] - SOURCE: Cervix, Endocervix [facility] Pap, specimen adequacy Satisfactory for evaluation. Endocervical/valdez sformation zone component present. Age and/or menstrual status not provided [facility] HPV interp Negative for intraepithelial lesion or malignancy. [facility] COMMENTS This Pap test has been evaluated with computer assisted technology. [facility] Recovery Coordinator NATHANIEL, CT(ASCP) CT screening location: [place] [address] [place] [address] [facility] Comment [facility] Comment: EXPLANATORY NOTE: The Pap is a screening test for cervical cancer. It is not a diagnostic test and is subject to false negative and false positive results. It is most reliable when a satisfactory sample, regularly obtained, is submitted with relevant clinical findings and history, and when the Pap result is evaluated along with historic and current clinical information. 04/10/2019 8:46 AM CDT 04/13/2019 11:34 AM CDT Narrative [facility] - 04/18/2019 10:59 AM CDT FASTING: UNKNOWN Resulting Agency Comment Performing Organization Information: Site ID: Name: [facility] Address: [facility] [place] [address] Director: Ailyn Rushing Sarah Beth Rodriguez MD LAB PATHOLOGY ORDERABLE S Final Result [facility] - [place] from Last 3 Months or Most Recently Relevant to Health Maintenance Insurance ANTH ACCESS ANTHEM ACCESS CHOICE BLUE ACCESS OOS BLUE ACCESS OOS LUTZ August OOS Care Teams Software Test And Validation Engineer Relationship Specialty Start Date End Date Sarah Beth Rodriguez MD [address] [place] [address] PCP - General 12/31/18
[2025-10-07 11:23] VITALS: BP 101/74; PULSE 78; RESP 20; TEMP 36.6; O2SAT 99; BMI 27.7
[2025-10-07] MEDS: LACTATED RINGERS 1,000 ML 150 ML IV CONT (11:29)
--- NOTE | 2025-10-07 13:11 | SUR.PREOP ---
pt and family made aware dr arteaga's schedule is running late today due to earlier procedures. pt voiced understanding.
--- NOTE | 2025-10-07 13:22 | WPDANESEPPF ---
Anes - Initial Pre Proc Eval Procedure: Operation Date: 10/07/25 12:30 Proposed Procedures p Diagnostic Colonoscopy - Elia Mar MD Date/Time: 10/07/25 13:22 Surgeon: Elia Mar MD Pre Op Diagnosis: Other specified symptoms and signs involving the d Patient Data Age: 45 Gender: F Height: 1.73 m Weight: 82.8 kg Last Vital Signs Temp 36.6 C 10/07/25 11:23 Pulse 78 10/07/25 11:23 Resp 20 10/07/25 11:23 BP 101/74 10/07/25 11:23 Pulse Ox 99 10/07/25 11:23 O2 Del Method Room Air 10/07/25 11:23 Allergies Allergy/AdvReac Type Severity Reaction Status Date / Time coconut Allergy Unknown Unknown Verified 10/07/25 11:22 Home Medications ?Medication ?Instructions ?Recorded ?Confirmed ?Type fluoxetine 40 mg capsule 40 mg PO DAILY 02/01/22 10/07/25 History lithium carbonate 300 mg 300 mg PO QHS 10/02/23 10/07/25 History tablet,extended release ubrogepant 100 mg tablet (Ubrelvy) 100 mg PO ONCE PRN migraine 02/04/24 09/20/25 Rx headache #14 tabs atogepant 60 mg tablet (Qulipta) 60 mg PO DAILY #90 tabs 04/10/24 10/07/25 Rx albuterol sulfate 90 mcg/actuation 1 inh inhalation Q4H #8.5 grams 10/26/24 09/20/25 Rx aerosol inhaler fexofenadine 60 mg tablet (Wanda 60 mg PO DAILY 10/26/24 10/07/25 History Allergy) epinephrine 0.3 mg/0.3 mL IM 04/01/25 08/10/25 History injection, auto-injector gabapentin 100 mg capsule 200 mg PO DAILY 04/01/25 10/07/25 History insulin syringe-needle U-100 0.3 #10 ea 04/01/25 08/10/25 History mL 31 gauge x 5/16 Patient hx anesthesia problems: none Family hx anesthesia problems: none Results Review: All pre-operative results and documents have been reviewed as part of the pre-operative evaluation. [facility] Past Medical History Medical History Flu-like symptoms Viral illness Migraine Allergies Surgical History Surgical History H/O: hysterectomy (~04/2022) with left oophorectomy H/O shoulder surgery right, 09/2020 Family History Family History Mother Hypertension Hyperlipidemia Depression Heart disease Thyroid disorder Sibling Diabetes mellitus Depression Thyroid disorder Father Malignant neoplasm of prostate Heart disease Grandparent Lung cancer Depression Heart disease Cerebrovascular accident Other Breast cancer Social History Social History Social History: Caffeine-coffee Smoking status: Never smoker Alcohol intake: current Drinks per week: 2 Substance use type: does not use Lack of Transportation: No Lack of Food: Never True Current Housing: I Have Housing Concerned About Future Housing: No Difficulty Paying Gas/Electric Bills: No Difficulty Paying for Meds: No Currently Unemployed: No Education: Master's Degree or Higher Difficulty w/ Childcare or Family Care: No Living arrangements: with family Additional living arrangements comments: with sp Gender identity (if verbalized by the patient): Female Agree to blood products: Yes Anes - Eval Final PreProcedure Day of Procedure 10/07/25 13:22 Patient weight: overweight Heart: regular rate and rhythm Lungs: clear to auscultation Airway: Mallampati scale class 1 Neurological: alert and oriented Last oral intake: >/= 8 hours ASA classification: III Emergent: no Anesthetic plan: proceed Anesthesia type and monitoring: general GIVS and standard monitoring Results Review: All pre-operative results and documents have been reviewed as part of the pre-operative evaluation. Informed Consent: The patient's anesthetic plan and its attendant risks and benefits were discussed with the patient/family/POA. Questions were solicited and answers provided to the satisfaction of the patient/family/POA.
--- NOTE | 2025-10-07 13:35 | PM.IMHP2 ---
H&P: HPI History of Present Illness Date/Time: 10/07/25 13:35 Chief Complaint: Abdominal pain Narrative: Patient is being referred for colonoscopy due to the presence of fluctuating chronic left lower quadrant pain. She has had a hysterectomy and a diagnosis of endometriosis. Review of Systems Review of Systems: All systems reviewed & are unremarkable except as noted in HPI and below PMFSH Past Medical History Medical History Flu-like symptoms Viral illness Migraine Allergies Surgical History Surgical History H/O: hysterectomy (~04/2022) with left oophorectomy H/O shoulder surgery right, 09/2020 Family History Family History Mother Hypertension Hyperlipidemia Depression Heart disease Thyroid disorder Sibling Diabetes mellitus Depression Thyroid disorder Father Malignant neoplasm of prostate Heart disease Grandparent Lung cancer Depression Heart disease Cerebrovascular accident Other Breast cancer Social History Social History Social History: Caffeine-coffee Smoking status: Never smoker Alcohol intake: current Drinks per week: 2 Substance use type: does not use Lack of Transportation: No Lack of Food: Never True Current Housing: I Have Housing Concerned About Future Housing: No Difficulty Paying Gas/Electric Bills: No Difficulty Paying for Meds: No Currently Unemployed: No Education: Master's Degree or Higher Difficulty w/ Childcare or Family Care: No Living arrangements: with family Additional living arrangements comments: with sp Gender identity (if verbalized by the patient): Female Agree to blood products: Yes Meds Home Medications and Allergies Home Medications ?Medication ?Instructions ?Recorded ?Confirmed ?Type fluoxetine 40 mg capsule 40 mg PO DAILY 02/01/22 10/07/25 History lithium carbonate 300 mg 300 mg PO QHS 10/02/23 10/07/25 History tablet,extended release ubrogepant 100 mg tablet (Ubrelvy) 100 mg PO ONCE PRN migraine 02/04/24 09/20/25 Rx headache #14 tabs atogepant 60 mg tablet (Qulipta) 60 mg PO DAILY #90 tabs 04/10/24 10/07/25 Rx albuterol sulfate 90 mcg/actuation 1 inh inhalation Q4H #8.5 grams 10/26/24 09/20/25 Rx aerosol inhaler fexofenadine 60 mg tablet (Wanda 60 mg PO DAILY 10/26/24 10/07/25 History Allergy) epinephrine 0.3 mg/0.3 mL IM 04/01/25 08/10/25 History injection, auto-injector gabapentin 100 mg capsule 200 mg PO DAILY 04/01/25 10/07/25 History insulin syringe-needle U-100 0.3 #10 ea 04/01/25 08/10/25 History mL 31 gauge x 03/19 Allergies Allergy/AdvReac Type Severity Reaction Status Date / Time coconut Allergy Unknown Unknown Verified 10/07/25 11:22 Vital Signs Vital Signs - 24 hr 10/07/25 11:23 Temperature 97.8 F Pulse Rate 78 Respiratory Rate 20 Blood Pressure 101/74 Pulse Oximetry 99 Oxygen Delivery Room Air Exam Const: General: cooperative and healthy appearing Resp: Effort & Inspection: normal respiratory effort and able to speak in complete sentences Auscultation: clear to auscultation bilaterally Cardio: Rate: regular rate Rhythm: regular rhythm GI: Inspection: normal to inspection GI Palp: No No hepatosplenomegaly present Auscultation: normal bowel sounds Rectal Exam: deferred Skin: General skin exam: normal color Psych: Appearance: grossly normal Mental Status: mental status grossly normal Assessment and Plan Assessment and plan (1) Abdominal pain: Code(s): R10.9 - Unspecified abdominal pain Status: Acute Assessment and Plan: The patient is deemed a good candidate for the procedure. Consent signed. Will proceed. Prior Studies I have reviewed the following patient records and this information was taken into consideration when formulating the assessment and plan.: previous labs, previous ER visits, previous hospitalizations and previous clinic visits
--- NOTE | 2025-10-07 13:54 | S_PTH ---
PATIENT: Carmela Dobbins LOC: [facility] U#:[id number] AGE/SX: 45/F ROOM: RE10/07/[address]: Elia Mar MD : 1980 BED: DIS: 10/07/2025 SPEC #: [id number] RECD: 10/07/25 14:29 STATUS: [place] REQ #: [id number] BRE: 10/07/25 13:[address]: Elia Mar DEPT: [facility] Surgical RECD BY: Domi Avilez ENTERED: 10/07/25 14:29 SP TYPE: Surgical OTHR DR: Nii De La Vega DO Tissues: A - Colon Biopsy B - Colon Biopsy Procedures: Hematoxylin and Eosin Stain Gross and Microscopic Level 4
[2025-10-07 14:01] VITALS: BP 75/37; PULSE 71; RESP 17; O2SAT 100
[2025-10-07 14:11] VITALS: BP 90/63; PULSE 63; RESP 16; O2SAT 100
[2025-10-07 14:21] VITALS: BP 107/62; PULSE 53; RESP 14; O2SAT 100
== END 2025-10-07 14:28 | disposition home or self-care (01) ==
PROVIDERS: PCP Internal Medicine; Referring Provider Clinical Nurse Specialist; Visit Provider Internal Medicine Gastroenterology
PROC: 0DJD8ZZ Inspection of Lower Intestinal Tract, Via Natural or Artificial Opening Endoscopic (ICD-10-PCS; CPT 45378; principal; 2025-10-07 12:30)
DX: R10.32 Left lower quadrant pain (principal); N80.9 Endometriosis, unspecified; Z79.51 Long term (current) use of inhaled steroids; Z79.4 Long term (current) use of insulin; Z98.890 Other specified postprocedural states; Z80.42 Family history of malignant neoplasm of prostate; Z80.3 Family history of malignant neoplasm of breast; Z80.1 Family history of malignant neoplasm of trachea, bronchus and lung; Z82.49 Family history of ischemic heart disease and other diseases of the circulatory system
CPT/HCPCS: 45380; 88305; J2704; J7120